=== PATIENT | male | born 1975 | race Two or more races ===

== ENCOUNTER 2022-12-10 10:34 | Emergency (ER) | payer OTHER ==
[~2022-12-10] VITALS: Ht 177.8 cm; Wt 86.2 kg
== END 2022-12-10 14:35 | disposition home or self-care (01) ==
LOC: ER 10:34
DX: S93.691A Other sprain of right foot, initial encounter (principal); X58.XXXA Exposure to other specified factors, initial encounter; Y93.9 Activity, unspecified; Y92.9 Unspecified place or not applicable; Y99.9 Unspecified external cause status

== ENCOUNTER 2023-04-07 09:57 | Emergency (ER) | payer OTHER ==
[~2023-04-07] VITALS: Ht 185.4 cm; Wt 117.9 kg
== END 2023-04-07 13:33 | disposition home or self-care (01) ==
LOC: ER 09:58
DX: M79.602 Pain in left arm (principal); M25.522 Pain in left elbow

== ENCOUNTER 2023-05-25 15:29 | Emergency (ER) | payer OTHER ==
[~2023-05-25] VITALS: Ht 185.4 cm; Wt 115.7 kg
== END 2023-05-25 17:39 | disposition home or self-care (01) ==
LOC: ER 15:31
DX: M54.32 Sciatica, left side (principal)

== ENCOUNTER 2023-07-19 15:01 | Emergency (ER) | payer OTHER ==
[~2023-07-19] VITALS: Ht 185.4 cm; Wt 116.6 kg
[2023-07-19] MEDS ORDERED: KETOROLAC TROMETHAMINE 60 MG VIAL IM ONE (16:45)
[2023-07-19] MEDS ORDERED: DICLOFENAC SODI75 MG PO (18:22)
== END 2023-07-19 18:45 | disposition home or self-care (01) ==
LOC: ER 15:02
DX: M25.552 Pain in left hip (principal); M54.50 Low back pain, unspecified

== ENCOUNTER 2023-11-29 13:06 | Emergency (ER) | payer OTHER ==
[~2023-11-29] VITALS: Ht 185.4 cm; Wt 112.5 kg
[~2023-11-29 13:06] MED LIST: DICLOFENAC SODI75 MG PO
[2023-11-29] MEDS ORDERED: TRIAMCINOLONE ACETONIDE 40 MG/ML VIAL IM ONE (14:15)
[2023-11-29] MEDS ORDERED: NORFLEX100MG PO (14:15)
[2023-11-29] MEDS ORDERED: DICLOFENAC SODI75 MG PO (14:15)
[2023-11-29] MEDS ORDERED: KETOROLAC TROMETHAMINE 60 MG VIAL IM ONE (14:15)
== END 2023-11-29 14:20 | disposition home or self-care (01) ==
LOC: ER 13:09
DX: M54.50 Low back pain, unspecified (principal)
CPT/HCPCS: 96372; 99282; J1885; J3301

== ENCOUNTER → 2024-04-12 | Emergency (ER) | payer OTHER ==
[~2024-04-12] VITALS: Ht 185.4 cm; Wt 112.0 kg
[~2024-04-12] MED LIST changes: +NORFLEX100MG PO
[2024-04-12 12:27] LABS: HEMATOCRIT 47.2 % (39.0-48.0); HEMOGLOBIN 16.7 g/dL (13-16.00); MEAN CELL VOLUME 92.7 fL (80.0-100.00); MEAN CORPUSCULAR HEMOGLOBIN 32.7 pg (27.00-32.0); MEAN CORPUSCULAR HGB CONC 35.3 g/dl (32.0-36.0); PLATELET COUNT 227 K/uL (150-450); RED BLOOD COUNT 5.09 M/uL (4.00-6.00); RED CELL DISTRIBUTION WIDTH 13.5 % (11.5-14.5)
[2024-04-12 13:11] LABS: CALCIUM 9.2 mg/dL (8.5-10.1); CREATININE SERUM 0.88 mg/dL (0.70-1.30); GFR 91.3; POTASSIUM 4.2 mEq/L (3.5-5.1)
== END | disposition home or self-care (01) ==
LOC: ER 09:55
PROVIDERS: General Practice
DX: E86.0 Dehydration (principal); R25.2 Cramp and spasm

== ENCOUNTER 2024-11-05 09:56 | Emergency (ER) | payer OTHER ==
[~2024-11-05] VITALS: Ht 185.4 cm; Wt 117.9 kg
[2024-11-05] MEDS ORDERED: KETOROLAC TROMETHAMINE 10 MG TABLET PO ONE (10:45)
[2024-11-05] MEDS ORDERED: ORPHENADRINE CITRATE 100 MG TABLET PO ONE (10:45)
[2024-11-05] MEDS ORDERED: NORFLEX100MG PO (11:57)
== END 2024-11-05 13:06 | disposition home or self-care (01) ==
LOC: ER 10:08
DX: M62.830 Muscle spasm of back (principal)